=== PATIENT | male | born 1940 | race Caucasian/White ===

== ENCOUNTER 2018-10-06 14:00 | Outpatient (RCR) | payer MEDICARE | END 2018-10-06 14:30 | disposition home or self-care (01) | LOC: PT 14:00 | DX: M47.817 Spondylosis without myelopathy or radiculopathy, lumbosacral region (principal) | CPT/HCPCS: G8978-GP; G8979-GP ==

== ENCOUNTER 2019-12-16 15:00 | Outpatient (RCR) | payer MEDICARE | END 2019-12-25 | disposition still patient (30) | LOC: CARDREHAB | DX: Z48.812 Encounter for surgical aftercare following surgery on the circulatory system (principal); Z95.5 Presence of coronary angioplasty implant and graft ==

== ENCOUNTER 2020-01-05 14:30 | Outpatient (RCR) | payer MEDICARE | END 2020-03-27 | disposition home or self-care (01) | LOC: CARDREHAB | DX: Z48.812 Encounter for surgical aftercare following surgery on the circulatory system (principal); Z95.5 Presence of coronary angioplasty implant and graft ==

== ENCOUNTER 2021-06-27 12:58 | Outpatient (RCR) | payer MEDICARE | END 2021-07-04 17:00 | disposition still patient (30) | LOC: PT 12:58 | DX: M47.812 Spondylosis without myelopathy or radiculopathy, cervical region (principal) ==